=== PATIENT | male | born 1950 | race Two or more races ===

== ENCOUNTER 2018-11-21 07:54 | Outpatient (CLI) | payer OTHER | END 2018-11-21 08:17 | disposition home or self-care (01) | LOC: SONOGRAMA 07:54 → MAMO-SONO 08:15 → SONOGRAMA 08:17 | DX: K76.0 Fatty (change of) liver, not elsewhere classified (principal); Z04.9 Encounter for examination and observation for unspecified reason; E04.8 Other specified nontoxic goiter ==

== ENCOUNTER 2020-01-03 07:38 | Outpatient (CLI) | payer OTHER | END 2020-01-03 07:40 | disposition home or self-care (01) | LOC: SONOGRAMA 07:38 → MAMO-SONO 07:45 | DX: E03.8 Other specified hypothyroidism (principal); E04.2 Nontoxic multinodular goiter ==

== ENCOUNTER 2020-04-21 07:49 | Outpatient (CLI) | payer OTHER | END 2020-04-21 08:02 | disposition home or self-care (01) | LOC: MRI 07:49 | PROVIDERS: ATTEND Psychiatry & Neurology Neurology | DX: I65.23 Occlusion and stenosis of bilateral carotid arteries (principal) | CPT/HCPCS: 70548; A9575; 70547 ==

== ENCOUNTER 2025-01-29 10:29 | Outpatient (CLI) | payer OTHER | END 2025-01-29 10:32 | disposition home or self-care (01) | LOC: SONOGRAMA 10:29 | DX: N28.1 Cyst of kidney, acquired (principal) ==